=== PATIENT | male | born 1990 | race Hispanic/Latino ===

== ENCOUNTER 2022-03-25 19:29 | Emergency (ER) | payer OTHER ==
[2022-03-25] MEDS ORDERED: HYDROCODONE/APAP 10/325 TAB ONE (21:04)
[2022-03-25] MEDS ORDERED: KETOROLAC 30 MG/ML INJ ONE ×2 (21:04→21:15)
--- NOTE | 2022-03-25 21:36 | RAD REPORT ---
EXAM DESCRIPTION: RAD - Chest Pa And Lat (2 Views) - 03/25/2022 9:20 pm CLINICAL HISTORY: Pain COMPARISON: No comparisons FINDINGS: Lines: None. Lungs: No evidence of edema or pneumonia. Pleural: No significant pleural effusions or pneumothorax. Cardiac: The heart size is within normal limits. Mediastinum: Within normal limits. Bones: No acute fractures. Other: None IMPRESSION: No acute cardiopulmonary disease.
--- NOTE | 2022-03-25 21:41 | RAD REPORT ---
EXAM DESCRIPTION: RAD - Shoulder Right 2 View - 03/25/2022 9:20 pm CLINICAL HISTORY: Pain COMPARISON: No comparisons FINDINGS/IMPRESSION: No acute fracture. No malalignment. No significant focal degenerative changes.
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
[2022-03-26 00:40] VITALS: TEMP 98.1
[2022-03-26 00:43] VITALS: BP 113/79; O2SAT 100
== END 2022-03-25 22:02 | disposition home or self-care (01) ==
LOC: EDBD 19:29 → ER 19:29
DX: M25.511 Pain in right shoulder (principal); V43.62XA Car passenger injured in collision with other type car in traffic accident, initial encounter
CPT/HCPCS: 71046; 96372; 99284